=== PATIENT | female | born 1960 | race Caucasian/White ===

== ENCOUNTER 2018-08-30 23:55 | Emergency (ER) | payer OTHER ==
[2018-08-31] MEDS ORDERED: Sodium Chloride 0.9% 1,000 ML IV ONE (00:38)
[2018-08-31 00:49] LABS: BASO % 0.5 % (0.0-2.0); EOS # 0.1 K/uL (0.0-0.7); EOS % 2.5 % (0.0-4.0); HEMOGLOBIN 13.7 g/dL (11.0-16.0); LYMPH # 1.8 K/uL (1.0-4.3); LYMPH % 33.2 % (20.0-40.0); MEAN CELL VOLUME 88.4 fL (81.0-99.0); MEAN CORPUSCULAR HEMOGLOBIN 29.6 pg (27.0-31.0); MEAN CORPUSCULAR HGB CONC 33.4 g/dL (33.0-37.0); MEAN PLATELET VOLUME 8.2 fL (7.2-11.7); MONO # 0.3 K/uL (0.0-0.8); MONO % 5.8 % (0.0-10.0); NEUT # 3.2 K/uL (1.8-7.0); RBC 4.63 Mil/uL (3.80-5.20); RED CELL DISTRIBUTION WIDTH 12.6 % (11.5-14.5); WHITE BLOOD COUNT 5.5 K/uL (4.8-10.8)
[2018-08-31 00:49] LABS: URINE BILIRUBIN NEGATIVE (NEGATIVE); URINE BLOOD NEGATIVE (NEGATIVE); URINE CLARITY Clear (Clear); URINE COLOR Yellow (YELLOW); URINE GLUCOSE (UA) NORMAL (Normal); URINE LEUKOCYTE ESTERASE NEG Leu/uL (Negative); URINE PROTEIN NEGATIVE (NEGATIVE); URINE UROBILINOGEN NORMAL mg/dL (0.2-1.0)
[2018-08-31] MEDS ORDERED: Sodium Chloride 0.9% 1,000 ML ONE (00:51)
[2018-08-31 00:53] LABS: HCG,QUALITATIVE URINE NEGATIVE (NEGATIVE)
[2018-08-31 01:02] LABS: ALB/GLOB RATIO 1.4 (1.0-2.1); ALBUMIN 4.3 g/dL (3.5-5.0); ALT/SGPT 16 U/L (9-52); AST/SGOT 24 U/L (14-36); BLOOD UREA NITROGEN 19 mg/dL (7-17); CALCIUM 9.5 mg/dl (8.6-10.4); GFR NON-AFRICAN AMERICAN > 60; LIPASE 60 U/L (23-300)
--- NOTE | 2018-08-31 01:38 | C.PDOC ---
History Of Present Illness 57 year old female presents with crampy epigastric pain since last week. Patient eats tamazight style diet of rice, bread, cheese, and meats. Time Seen by Provider: 08/31/18 00:31 Chief Complaint (Nursing): Abdominal Pain History Per: Patient History/Exam Limitations: no limitations Onset/Duration Of Symptoms: Days Current Symptoms Are (Timing): Still Present Location Of Pain/Discomfort: Epigastric Quality Of Discomfort: Cramping Associated Symptoms: denies: Fever, Chills, Nausea, Vomiting Exacerbating Factors: None Alleviating Factors: None Recent travel outside of the [place]: No Abnormal Vaginal Bleeding: No Past Medical History Reviewed: Historical Data, Nursing Documentation, Vital Signs Vital Signs: Last Vital Signs Temp 97.8 F 08/31/18 00:19 Pulse 62 08/31/18 00:19 Resp 18 08/31/18 00:19 BP 146/77 08/31/18 00:19 Pulse Ox 99 08/31/18 00:19 - Medical History PMH: Denies: Chronic Kidney Disease Family History: States: Unknown Family Hx - Social History Hx Alcohol Use: No Hx Substance Use: No - Immunization History Hx Tetanus Toxoid Vaccination: No Hx Influenza Vaccination: Yes Hx Pneumococcal Vaccination: No Review Of Systems Constitutional: Negative for: Fever, Chills Cardiovascular: Negative for: Chest Pain, Palpitations Respiratory: Negative for: Cough, Shortness of Breath Gastrointestinal: Positive for: Abdominal Pain, Constipation. Negative for: Nausea, Vomiting Neurological: Negative for: Weakness, Numbness Physical Exam - Physical Exam Appears: Non-toxic Skin: Normal Color, Warm Head: Atraumatic, Normacephalic Eye(s): bilateral: Normal Inspection Oral Mucosa: Moist Neck: Normal, Supple Chest: Symmetrical, No Tenderness Cardiovascular: Rhythm Regular Respiratory: Normal Breath Sounds, No Rales, No Rhonchi, No Wheezing Gastrointestinal/Abdominal: Soft, No Tenderness, Other (Dull right and left side to percussion, tympanic at epigastrium, obese) Back: No CVA Tenderness Neurological/Psych: Oriented x3, Normal Speech ED Course And Treatment - Laboratory Results Result Diagrams: 08/31/18 00:45 08/31/18 00:45 Lab Results: Total Bilirubin 0.3 mg/dL (0.2-1.3) 08/31/18 00:45 AST 24 U/L (14-36) 08/31/18 00:45 ALT 16 U/L (9-52) 08/31/18 00:45 Alkaline Phosphatase 78 U/L (38-126) 08/31/18 00:45 Total Protein 7.4 g/dL (6.3-8.3) 08/31/18 00:45 Albumin 4.3 g/dL (3.5-5.0) 08/31/18 00:45 Globulin 3.1 gm/dL (2.2-3.9) 08/31/18 00:45 Albumin/Globulin Ratio 1.4 (1.0-2.1) 08/31/18 00:45 Lipase 60 U/L (23-300) 08/31/18 00:45 Urine Color Yellow (YELLOW) 08/31/18 00:41 Urine Clarity Clear (Clear) 08/31/18 00:41 Urine pH 5.0 (5.0-8.0) 08/31/18 00:41 Ur Specific Galt 1.011 (1.003-1.030) 08/31/18 00:41 Urine Protein Negative mg/dL (NEGATIVE) 08/31/18 00:41 Urine Glucose (UA) Normal mg/dL (Normal) 08/31/18 00:41 Urine Ketones Negative mg/dL (NEGATIVE) 08/31/18 00:41 Urine Blood Negative (NEGATIVE) 08/31/18 00:41 Urine Nitrate Negative (NEGATIVE) 08/31/18 00:41 Urine Bilirubin Negative (NEGATIVE) 08/31/18 00:41 Urine Urobilinogen Normal mg/dL (0.2-1.0) 08/31/18 00:41 Ur Leukocyte Esterase Neg Licha/uL (Negative) 08/31/18 00:41 Urine WBC (Auto) < 1 /hpf (0-5) 08/31/18 00:41 Urine RBC (Auto) < 1 /hpf (0-3) 08/31/18 00:41 Urine HCG, Qual Negative (NEGATIVE) 08/31/18 00:41 Urine HCG, Qual Negative (NEGATIVE) 08/31/18 00:41 Lab Interpretation: Normal (ua neg) Urine POC: Negative O2 Sat by Pulse Oximetry: 99 Pulse Ox Interpretation: Normal - Radiology CXR: Interpreted by Ak CXR Interpretation: Yes: No Acute Disease - Other Rad abd x 2 X-Ray: Interpreted by Me (+FOS) Reevaluation Time: 01:37 Reassessment Condition: Improved Medical Decision Making Medical Decision Making: chronic constip Disposition Doctor Will See Patient In The: Office Counseled Patient/Family Regarding: Studies Performed, Diagnosis - Disposition Referrals: [facility] [Outside] [facility] [Outside] [facility] [Outside] Samuel Sanders MD [Staff Provider] - Sophia Bradshaw MD [Medical Doctor] - Disposition: HOME/ ROUTINE Disposition Time: 01:38 Condition: GOOD Additional Instructions: drink bottle of laxative (mag Citrate) and re-evaluate your abdominal discomfort after 2-3 bowel movements diet and exercise changes less rice/bread/cheese more fresh fruits/vegetables drink more water occasional laxatives (ie, once per month) as needed. Instructions: Constipation in Adults Forms: [facility] ([place]) - Clinical Impression Clinical Impression: Abdominal pain, colicky - Scribe Statement The provider has reviewed the documentation as recorded by the Scribe Alex Bowles All medical record entries made by the Scribe were at my direction and personally dictated by me. I have reviewed the chart and agree that the record accurately reflects my personal performance of the history, physical exam, medical decision making, and the department course for this patient. I have also personally directed, reviewed, and agree with the discharge instructions and disposition.
[2018-08-31] MEDS ORDERED: Magnesium Citrate Oral SOL (300 ml) PO ONE (01:40)
[2018-08-31 01:51] VITALS: BP 116/76; PULSE 66; RESP 20; TEMP 97.4
[2018-08-31 04:04] VITALS: O2SAT 99
--- NOTE | 2018-08-31 13:00 | RAD ---
Date of service: 08/31/2018 PROCEDURE: Radiographs of the chest and abdomen (obstructive series) HISTORY: abd pain COMPARISON: No prior. TECHNIQUE: AP radiograph of the chest, with upright and supine radiographs of the abdomen. 3 views obtained. FINDINGS: CHEST: Lungs: Clear. Cardiovascular: Normal size heart. No pulmonary vascular congestion. No aortic atherosclerotic calcification present Pleura: No pleural fluid. No pneumothorax. Other findings: None. ABDOMEN AND PELVIS: Bowel: Mild constipation, otherwise unremarkable bowel gas pattern. No evidence of mechanical obstruction. Free air: None. Bones: Unremarkable. Other findings: None. IMPRESSION: Mild constipation, otherwise unremarkable radiographs of chest and abdomen. No evidence of mechanical bowel obstruction.
== END 2018-08-31 02:01 | disposition home or self-care (01) ==
LOC: C.ER 23:55
DX: R10.13 Epigastric pain (principal); R10.84 Generalized abdominal pain
CPT/HCPCS: 74022; 80053; 81001; 83690; 84703; 85025; 96374; 99285; J1885; J7030